=== PATIENT | male | born 1950 | race Caucasian/White ===

== ENCOUNTER → 2016-05-24 | Outpatient (CLI) | payer OTHER ==
[2016-05-24 16:57] LABS: BASOPHILS % (AUTO) 0.4 % (0-2); EOSINOPHILS # (AUTO) 0.2 T/MM3 (0-0.5); EOSINOPHILS % (AUTO) 1.4 % (0-4); HCT - HEMATOCRIT 41.2 % (41-53); HGB - HEMOGLOBIN 13.1 GM/DL (13.5-17.5); IMMATURE GRANULOCYTE # (AUTO) 0.05 T/MM3 (0.00-0.03); IMMATURE GRANULOCYTE % (AUTO) 0.5 % (0.0-0.5); LYMPHOCYTES % (AUTO) 8.7 % (23-45); MEAN CORPUSCULAR HGB 28.4 UUG (26-34); MEAN CORPUSCULAR HGB CONC(MCHC 31.8 GM/DL (31-37); MEAN CORPUSCULAR VOLUME 89.2 UM3 (80-100); MEAN PLATELET VOLUME 10.3 UM3 (9.4-12.4); MONOCYTES % (AUTO) 9.2 % (0-9.0); NEUTROPHILS #(AUTO)-ABSOLUTE 8.8 T/MM3 (1.8-7.7); NEUTROPHILS % (AUTO) 79.8 % (33-66); RED BLOOD COUNT 4.62 M/MM3 (4.50-5.90)
--- NOTE | 2016-05-24 17:10 | DI ---
LOCATION OF DICTATION: [facility] EXAM: CHEST, PA LATERAL HISTORY: ITS.REASON: DIAGNOSTIC TESTING COMPARISON: No prior studies available for comparison. FINDINGS: The heart borders are partially obscured though appears to be upper limits normal in size. There is a moderate-sized left pleural effusion with subjacent atelectasis or infiltrates. Small right pleural effusion is demonstrated. There is a catheter extending into the right lateral lower chest. There is no evidence for pneumothorax. Mild spondylosis of the thoracic spine. Impression: 1. Moderate-sized left pleural effusion with subjacent atelectasis or infiltrates. Small right pleural effusion. 2. Upper limits normal size heart. .
== END ==
LOC: IMA 15:54
DX: Z02.9 Encounter for administrative examinations, unspecified (principal)
CPT/HCPCS: 36415; 85025